=== PATIENT | male | born 1940 | race Two or more races ===

== ENCOUNTER 2017-07-04 05:56 | Day surgery (SDC) | payer OTHER ==
[~2017-07-04] VITALS: Ht 167.6 cm; Wt 86.8 kg
[2017-07-04] VITALS (11 sets, daily range): BP systolic 111–180; BP diastolic 48–115; PULSE 60–74; RESP 18–20; TEMP 97.5–98.5; O2SAT 94–95
[2017-07-04] MEDS ORDERED: SODIUM CHLOR 0.9% 1000 ML IV SCH (07:00)
[2017-07-04] MEDS ORDERED: METO25TA3 PO (07:17)
[2017-07-04] MEDS ORDERED: ASPI81CH6 CHEW (07:17)
[2017-07-04] MEDS ORDERED: NITR1SUB3 SL (07:17)
[2017-07-04] MEDS ORDERED: LISI-515 PO (07:17)
[2017-07-04] MEDS ORDERED: SIMV20TA PO (07:17)
[2017-07-04] MEDS ORDERED: LORazepam 1 MG TAB PO ONE (08:00)
[2017-07-04] MEDS ORDERED: LIDOCAINE 1%/EPINEPHrine 1:100,000 SOLN 50 ML VIAL ONE (08:03)
[2017-07-04 08:12] LABS: AUTOMATED NEUTROPHIL # 4.6 TH/MM3 (1.8-7.7); BASOPHIL # 0.1 TH/MM3 (0-0.2); BASOPHIL % 1.9 % (0.0-2.0); EOSINOPHIL # 0.1 TH/MM3 (0-0.4); EOSINOPHIL % 1.6 % (0.0-4.0); HEMATOCRIT 47.7 % (39.0-51.0); HEMOGLOBIN 16.4 GM/DL (13.0-17.0); LYMPH % 28.2 % (9.0-44.0); LYMPHOCYTE # 2.1 TH/MM3 (1.0-4.8); MEAN CELL VOLUME 90.1 FL (80.0-100.0); MEAN CORPUSCULAR HEMOGLOBIN 31.1 PG (27.0-34.0); MEAN CORPUSCULAR HGB CONC 34.5 % (32.0-36.0); MEAN PLATELET VOLUME 8.9 FL (7.0-11.0); MONO % 6.8 % (0.0-8.0); MONOCYTE # 0.5 TH/MM3 (0-0.9); NEUT % 61.5 % (16.0-70.0); PLATELET COUNT 275 TH/MM3 (150-450); RED BLOOD COUNT 5.29 MIL/MM3 (4.50-5.90); RED CELL DISTRIBUTION WIDTH 14.3 % (11.6-17.2); WHITE BLOOD COUNT 7.5 TH/MM3 (4.0-11.0)
[2017-07-04] MEDS ORDERED: fentaNYL CITRATE 250 MCG/5 ML AMP ONE (08:21)
[2017-07-04] MEDS ORDERED: MIDAZOLAM HCL 5 MG/5 ML VIAL ONE (08:21)
--- NOTE | 2017-07-04 09:04 | PD.RAD ---
Post CT Procedure Prog Note Pre Procedure Diagnosis: (1) Left renal mass Post Procedure Diagnosis: (1) Left renal mass Procedure Date: Jul 04, 2017 Supervising Radiologist: Drew Piña Anesthesia: Local, Conscious Sedation Plan of Activity Patient to Unit: ROPU Patient Condition: Good See PACS Report for procedural detail/treatment Biopsy Imaging Guidance: CT Side: Left Biopsy Procedure: Abdominal Mass, Kidney Specimen: Core Biopsy Drew Piña MD Jul 04, 2017 09:04
--- NOTE | 2017-07-04 09:22 | RADRPT ---
EXAM DATE/TIME: 07/04/2017 08:38 [place] COMPARISON: No previous studies available for comparison. INDICATIONS : Left renal mass SEDATION TIME: 20 minutes BIOPSY SITE: Left kidney MEDICATION(S): 1.) 3.5 mg midazolam (Versed) IV 2.) 225 mcg fentanyl (Sublimaze) IV DEVICE(S): 1.) 17 gauge introducer 2.) 18 gauge Temno core biopsy needle MEDICAL HISTORY : Chronic obstructive pulmonary disease. Hypertension. SURGICAL HISTORY : None. ENCOUNTER: Initial ACUITY: 1 day PAIN SCORE: 0/10 LOCATION: Left flank A total of three core specimen(s) were obtained and sent to the laboratory for pathologic evaluation. PROCEDURE: 1. CT guided left renal mass biopsy. 2. Conscious sedation with continuous EKG and oximetry monitoring. 3. EKG and oximetry remained stable throughout the procedure. Prior to the procedure informed consent was obtained. Any appropriate prior imaging studies were rev iewed. Using automated exposure control and adjustment of the mA and/or kV according to patient size, radiat ion dose was kept as low as reasonably achievable to obtain optimal diagnostic quality images. DICOM format image data is available electronically for review and comparison. The site was prepped in a sterile fashion. Full sterile technique was used, including cap, mask, sanju rile gloves and gown and a large sterile sheet. Hand hygiene and 2% chlorhexidine and/or betadine/al cohol prep was utilized per protocol for cutaneous antisepsis. The skin and subcutaneous tissues wer e infiltrated with local anesthetic solution. With CT guidance the previously identified target was localized. Biopsy was performed using the presc ribed needle as above. Adequate hemostasis was obtained with compression at the puncture site. Follow-up CT scan reveals no hemorrhage. The patient tolerated the procedure well and there were no complications. The patient was returned to the Radiology Outpatient Unit in stable condition. CONCLUSION: Uncomplicated CT guided biopsy of a left renal mass. Drew Piña MD on July 04, 2017 at 9:18 Board Certified Radiologist. This report was verified electronically.
== END 2017-07-04 15:40 | disposition home or self-care (01) ==
LOC: HRAD 05:56 → HRIP 06:00 → HRAD 15:40
PROVIDERS: ATTEND Urology
DX: C64.2 Malignant neoplasm of left kidney, except renal pelvis (principal); I10 Essential (primary) hypertension; J44.9 Chronic obstructive pulmonary disease, unspecified; Z01.818 Encounter for other preprocedural examination
CPT/HCPCS: 50200; 77012; 85025; 88305; J2250; J3010; 32405

== ENCOUNTER 2017-08-23 05:51 | Inpatient (IN) | payer OTHER, MEDICARE ==
[~2017-08-23] VITALS: Ht 167.6 cm; Wt 87.0 kg
[~2017-08-23 05:51] MED LIST: ASPI81CH6 CHEW; LISI-515 PO; METO25TA3 PO; NITR1SUB3 SL; SIMV20TA PO; UMEC1AER INH
[2017-08-23] MEDS ORDERED: METOPROLOL TARTRATE 25 MG TAB PO PRN (06:30)
[2017-08-23] MEDS ORDERED: CHLORHEXIDINE GLUCONATE 2 % 1 PACK (2 CLOTHS) TOPICAL PRN (06:30)
[2017-08-23] MEDS ORDERED: POVIDONE IODINE 5% (ANTISEPSIS KIT) 4 APPLICATIONS EACH NARE PRN (06:30)
[2017-08-23] MEDS ORDERED: SODIUM CHLORID 0.9% 500 ML IV PRN (06:30)
[2017-08-23] MEDS ORDERED: LACTATED RINGER'S 1000 ML IV PRN (06:30)
[2017-08-23 07:13] LABS: AUTOMATED NEUTROPHIL # 4.3 TH/MM3 (1.8-7.7); BASOPHIL % 0.5 % (0.0-2.0); EOSINOPHIL # 0.1 TH/MM3 (0-0.4); EOSINOPHIL % 2.2 % (0.0-4.0); HEMATOCRIT 46.2 % (39.0-51.0); HEMOGLOBIN 15.8 GM/DL (13.0-17.0); LYMPH % 24.5 % (9.0-44.0); LYMPHOCYTE # 1.7 TH/MM3 (1.0-4.8); MEAN CELL VOLUME 89.4 FL (80.0-100.0); MEAN CORPUSCULAR HEMOGLOBIN 30.6 PG (27.0-34.0); MEAN CORPUSCULAR HGB CONC 34.2 % (32.0-36.0); MEAN PLATELET VOLUME 9.1 FL (7.0-11.0); MONO % 8.6 % (0.0-8.0); MONOCYTE # 0.6 TH/MM3 (0-0.9); NEUT % 64.2 % (16.0-70.0); PLATELET COUNT 283 TH/MM3 (150-450); RED BLOOD COUNT 5.17 MIL/MM3 (4.50-5.90); RED CELL DISTRIBUTION WIDTH 14.3 % (11.6-17.2); WHITE BLOOD COUNT 6.8 TH/MM3 (4.0-11.0)
[2017-08-23] MEDS ORDERED: HYDROmorphone HCL PF 2 MG/ML VIAL ONE (07:16)
[2017-08-23] MEDS ORDERED: ACETAMINOPHEN 1000 MG/100 ML 100 ML IV ONE (07:16)
[2017-08-23] MEDS ORDERED: SUGAMMADEX SODIUM 200 MG/2 ML VIAL IV PUSH ONE (07:17)
[2017-08-23 07:38] LABS: ALBUMIN 3.8 GM/DL (3.4-5.0); BICARBONATE 23.6 MEQ/L (21.0-32.0); BLOOD UREA NITROGEN 18 MG/DL (7-18); CALCIUM 8.8 MG/DL (8.5-10.1); CHLORIDE 107 MEQ/L (98-107); CREATININE 1.08 MG/DL (0.60-1.30); GLOMERULAR FILTRATION RATE 67 ML/MIN (>89); GLUCOSE,RANDOM 107 MG/DL (74-106); SODIUM (NA) 141 MEQ/L (136-145)
[2017-08-23 07:39] LABS: ALT (GPT) 28 U/L (12-78); AST (GOT) 20 U/L (15-37)
[2017-08-23 07:41] LABS: ALKALINE PHOSPHATASE 88 U/L (45-117); TOTAL BILIRUBIN ADULT 0.8 MG/DL (0.2-1.0); TOTAL PROTEIN 7.3 GM/DL (6.4-8.2)
[2017-08-23] MEDS ORDERED: ONDANSETRON HCL 4 MG/2 ML VIAL IV ONE (12:00)
[2017-08-23] MEDS ORDERED: GLYCOPYRROLATE 1 MG/5 ML SYRINGE IV PUSH ONE (12:00)
[2017-08-23] MEDS ORDERED: PROPOFOL 200 MG/20 ML AMP IV ONE (12:00)
[2017-08-23] MEDS ORDERED: SODIUM CHLOR 0.9% 1000 ML INJ 3,000 ML IV ONE (12:00)
[2017-08-23] MEDS ORDERED: ROCURONIUM INJ 50 MG/5 ML SYRINGE IV PUSH ONE (12:00)
[2017-08-23] MEDS ORDERED: LIDOCAINE HCL 1% PF 5 ML SYRINGE OTHER ONE (12:00)
[2017-08-23] MEDS ORDERED: DEXAMETHASONE SOD PHOS 4 MG/ML VIAL IV ONE (12:00)
[2017-08-23] MEDS ORDERED: ePHEDrine/NS 25 MG/5 ML SYRINGE IV ONE (12:00)
[2017-08-23] MEDS ORDERED: SODIUM CHLORID 0.9% 500 ML INJ 500 ML IV ONE (12:00)
[2017-08-23] MEDS ORDERED: STERILE WATER FOR INJECTION 20 ML VIAL IV ONE (12:00)
[2017-08-23] MEDS ORDERED: ceFAZolin INJ 1,000 MG VIAL IV ONE ×2 (12:00→12:28)
[2017-08-23] MEDS ORDERED: VECURONIUM BROMIDE 20 MG VIAL IV ONE (12:00)
[2017-08-23] MEDS: ceFAZolin 2 GM/DEX PREMIX 50 ML IV SCH ×2 (12:25→12:31)
[2017-08-23] MEDS ORDERED: ceFAZolin INJ 1,000 MG VIAL ONE (12:26)
[2017-08-23] MEDS ORDERED: DO NOT ADM ANY ANTICOAGULANT DRUGS PRN (15:11)
--- NOTE | 2017-08-23 15:12 | PD.OP ---
Operative Report Date of Surgery: August 23, 2017 Preoperative Diagnosis: (1) Left renal mass (2) Renal cell carcinoma of left kidney Postoperative Diagnosis: (1) Bladder mass (2) Renal cell carcinoma of left kidney Procedure: Cystoscopy, transurethral resection of 2 bladder tumors measuring 1 cm and 2 cm respectively (left lateral wall )and robot-assisted laparoscopic left radical nephrectomy Anesthesia: General Surgeon: Gustavo Razo Art Educator(s): Stevan Barry Operation and Findings: Indication for procedures: Case of a pleasant 77-year-old gentleman who was recently discovered to have an approximately 5 cm left lower pole renal carcinoma as well as a filling defect involving the left bladder wall who presents today for cystoscopy and a robot-assisted laparoscopic left partial versus radical nephrectomy. Operative procedure in detail: Patient was brought to the operating room suite and placed supine. He was then placed under general anesthesia. He was then repositioned in the dorsolithotomy position and prepped and draped in normal sterile fashion. After appropriate timeout was undertaken I proceeded with cystoscopic evaluation utilizing the rigid cystoscope with the 20 [place] sheath and the 30 lens. The urethra was patent without stricture formation. The prostate was nonobstructing. Further passive cystoscope within the urinary bladder revealed both right and left ureteral orifices to be in correct anatomic position draining clear yellow urine. There were 2 frondular superficial bladder tumors involving the left lateral wall measuring 1 cm and 2 cm respectively. The cystoscope was exchanged for the resectoscope with the 24 [place] Cutting Loop and the patient underwent transurethral resection of these 2 bladder tumors. Again the tumors were very superficial in nature. Subsequent to this a 18 [place] 10 cc Kahn catheter was placed and the patient was repositioned in the right lateral recumbent position on the OR table in preparation for the robotic portion of the procedures. The patient was held in place with a beanbag and all pressure points were adequately padded. The lower aspect of the table was dropped down prior to inflating the beanbag to adequately separate the bony pelvis from the thorax. The patient was against was prepped and draped in normal sterile fashion. I then proceeded with creating a pneumoperitoneum utilizing the Veress needle in standard fashion. The pneumoperitoneum was inflated to 15 mmHg and subsequent to this the camera port was placed with the visual obturator. The remaining 3 robotic arm ports and the first breaker feeder port were placed under direct vision. At this point in time my associate Dr. Barry remained at the table to dock the robot and I repositioned myself over at the [employer] console.. I then proceeded to mobilize the left colon medially with both sharp and blunt dissection to expose the retroperitoneum. The inferior aspect of the kidney was mobilized and the ureter was identified and tracked upwards to the renal hilum. The patient was noted to have multiple arteries and veins innervating the kidney. I carefully excised most of the perirenal fat along the inferior aspect of the kidney and it became apparent that this patient was not a good candidate for a partial nephrectomy due to the size and location of the mass. I then proceeded to perform a radical nephrectomy. The renal arteries and veins were divided and ligated with the endovascular stapling device. The kidney was further mobilized and the ureter transected between 2 Humalog clips. Once fully mobilized the kidney was dropped into a large Endo Catch specimen bag. The pneumoperitoneum was dropped down to 5 mmHg to check for active bleeding and none was noted. Total blood loss was estimated to be 125 cc. The robot was undocked and the ports removed. I re-scrubbed and position myself back over at the bedside for wound closure. The camera port and first breaker feeder port were in the midline just superior to inferior to the umbilicus and these 2 sites were connected with a #10 blade. I extended the incision down and transected the underlying fascia. The patient was noted to have an umbilical hernia. The specimen was removed within the specimen bag and sent off to pathology. This lower midline incision was then closed with a running #1 PDS suture. The free skin edges were reapproximated with skin stapling device after the wound was irrigated. The remaining robotic arm ports were then addressed. 1 of the port sites was utilized for the RICA drain and the other 2 port sites were closed with the skin stapling device. Sterile dressings were placed over all wounds. The patient tolerated the procedures without complications and was transferred to the PACU in satisfactory condition. Gustavo Razo MD August 23, 2017 15:12
[2017-08-23] MEDS ORDERED: Post-op Orders (for Pharmacy) XX ONE (15:15)
[2017-08-23] MEDS ORDERED: NALOXONE HCL 0.4 MG/ML AMP IV PUSH PRN (15:15)
[2017-08-23] MEDS ORDERED: ONDANSETRON HCL 4 MG/2 ML VIAL IV PUSH PRN (15:15)
[2017-08-23] MEDS: PCA - TOTAL MG DILAUDID DELIVERED PER SHIFT OTHER SCH ×2 (15:15→20:47)
[2017-08-23] MEDS ORDERED: SODIUM CHLORIDE 0.9% FLUSH 10 ML FLUSH IV FLUSH PRN (15:15)
[2017-08-23] MEDS: HYDROmorphone HCL PCA 6 MG/30 ML IV SCH (15:55)
[2017-08-23] MEDS: D5-1/2 NS + KCL 20 MEQ INJ 1,000 ML IV SCH ×2 (16:29→23:30)
--- NOTE | 2017-08-23 18:02 | EKG ---
Date Performed: 08/23/2017 Time Performed: 06:54:17 PTAGE: 77 years EKG: Sinus rhythm NORMAL ECG NO PREVIOUS TRACING DOCTOR: Elena White Interpretating Date/Time 08/23/2017 18:00:26
[2017-08-23 20:00] VITALS: BP 133/64; PULSE 82; RESP 19; TEMP 98.7; O2SAT 91
[2017-08-23] MEDS: SODIUM CHLORIDE 0.9% FLUSH 10 ML FLUSH IV FLUSH SCH (20:47)
[2017-08-24] VITALS (8 sets, daily range): BP systolic 117–138; BP diastolic 58–75; PULSE 72–101; RESP 16–20; TEMP 97.4–98.7; O2SAT 91–99
[2017-08-24] MEDS: PCA - TOTAL MG DILAUDID DELIVERED PER SHIFT OTHER SCH (05:04)
[2017-08-24] MEDS: HYDROmorphone HCL PCA 6 MG/30 ML IV SCH (05:04)
[2017-08-24] MEDS: SODIUM CHLORIDE 0.9% FLUSH 10 ML FLUSH IV FLUSH SCH ×2 (07:13→20:47)
[2017-08-24] MEDS: D5-1/2 NS + KCL 20 MEQ INJ 1,000 ML IV SCH ×2 (07:30→20:47)
[2017-08-24 10:23] LABS: HEMATOCRIT 42.1 % (39.0-51.0); HEMOGLOBIN 13.8 GM/DL (13.0-17.0); MEAN CELL VOLUME 93.2 FL (80.0-100.0); MEAN CORPUSCULAR HEMOGLOBIN 30.5 PG (27.0-34.0); MEAN CORPUSCULAR HGB CONC 32.7 % (32.0-36.0); MEAN PLATELET VOLUME 9.5 FL (7.0-11.0); PLATELET COUNT 250 TH/MM3 (150-450); RED BLOOD COUNT 4.52 MIL/MM3 (4.50-5.90); RED CELL DISTRIBUTION WIDTH 14.9 % (11.6-17.2); WHITE BLOOD COUNT 15.6 TH/MM3 (4.0-11.0)
[2017-08-24 11:06] LABS: BICARBONATE 25.1 MEQ/L (21.0-32.0); CALCIUM 7.8 MG/DL (8.5-10.1); CREATININE 2.3 MG/DL (0.60-1.30)
--- NOTE | 2017-08-24 11:56 | HHI.PR ---
Subjective Patient symptoms today Postoperative day #1 Complains of only minor incisional pain Overall feels fine Objective Vital Signs Vital Signs Date Time Temp Pulse Resp B/P (MAP) Pulse Ox O2 Delivery O2 Flow Rate FiO2 08/24/17 08:00 97.6 76 16 129/68 (88) 94 08/24/17 05:04 20 08/24/17 05:04 20 08/24/17 04:00 97.9 73 19 119/64 (82) 99 08/24/17 00:00 98.7 72 19 124/58 (80) 92 08/23/17 20:47 20 08/23/17 20:00 98.7 82 19 133/64 (87) 91 08/23/17 17:35 98.3 80 16 136/65 (88) 98 Nasal Cannula 2 08/23/17 17:00 78 14 144/68 (93) 98 Nasal Cannula 2 08/23/17 16:30 85 15 147/75 (99) 98 Nasal Cannula 2 08/23/17 16:15 92 16 154/74 (100) 97 Nasal Cannula 2 08/23/17 16:00 90 15 149/68 (95) 97 Nasal Cannula 2 08/23/17 15:55 15 08/23/17 15:45 94 18 156/71 (99) 95 Nasal Cannula 2 08/23/17 15:30 80 16 148/71 (96) 97 Nasal Cannula 2 08/23/17 15:15 88 18 143/67 (92) 97 Nasal Cannula 2 08/23/17 15:10 97.7 95 20 154/72 (99) 98 Nasal Cannula 4 Intake & Output 08/24/17 08/24/17 07:00 19:00 Intake Total 0 ml Output Total 1500 ml Balance -1500 ml Intake Oral 0 ml Output Urine Total 1500 ml # Bowel Movements 0 Result Diagram: 08/24/17 0849 08/24/17 0849 Objective Remarks Abdomen soft, nondistended, nontender Wound dressings dry and intact Minimal output from RICA drain Extremities well-perfused, nontender Medications and IVs Current Medications Medications (Trade) Dose Ordered Sig/Salima Route Start Time Stop Time Status Last Admin Cefazolin Sodium/ Dextrose 50 ml @ 100 mls/hr CONTROL ENGINEER IV 08/23/17 06:30 08/26/17 06:29 08/23/17 12:31 (Lopressor) 25 mg CONTROL ENGINEER PRN PO 08/23/17 06:30 08/26/17 06:29 08/23/17 06:39 (Betadine 5% Antisepsis Kit) 1 applic CONTROL ENGINEER PRN EACH NARE 08/23/17 06:30 08/26/17 06:29 08/23/17 06:39 (Chlorhexidine 2% Cloth) 3 pack CONTROL ENGINEER PRN TOPICAL 08/23/17 06:30 08/26/17 06:29 08/23/17 06:39 (NS Flush) 2 ml UNSCH PRN IV FLUSH 08/23/17 15:15 (NS Flush) 2 ml BID IV FLUSH 08/23/17 21:00 (Zofran Inj) 4 mg Q6H PRN IV PUSH 08/23/17 15:15 Cefazolin Sodium 1000 mg/Sodium Chloride 100 ml @ 200 mls/hr Q8H IV 08/23/17 20:00 08/24/17 12:29 08/24/17 05:04 (Heparin Inj) 5,000 units Q8H SQ 08/24/17 14:00 (Narcan Inj) 0.4 mg UNSCH PRN IV PUSH 08/23/17 15:15 (Dilaudid HYSTER MACHINE OPERATOR Inj) 6 mg UNSCH IV 08/23/17 15:15 08/24/17 05:04 HYSTER MACHINE OPERATOR Dosage Infused (Pha) 1 Q8HR OTHER 08/23/17 15:15 08/24/17 05:04 Potassium Chloride/Dextrose/ Sod Cl 1,000 ml @ 42 mls/hr [id number] IV 08/23/17 15:30 08/23/17 23:30 ([facility] Nursing Information) ALL NURSING DEPARTME... UNSCH PRN .XX 08/23/17 15:11 08/24/17 15:10 (Nitrostat Sl) 0.4 mg ONCE PRN SL 08/24/17 12:00 UNV Non-Formulary Medication 20 mg DAILY PO 08/24/17 12:00 UNV Assessment and Plan Assessment and Plan Urologic impression: Status post robot-assisted laparoscopic left radical nephrectomy along with transurethral resection of 2 bladder tumors with excellent postoperative course. Plan: 1. Advance diet 2. Out of bed 3. DC RICA drain 4. DC Kahn in a.m. 5. Check path when available Scaglia,Chen P. MD August 24, 2017 11:56
[2017-08-24] MEDS ORDERED: NITROGLYCERIN 0.4 MG SL 25 TABS/BTL SL PRN (12:00)
[2017-08-24] MEDS ORDERED: oxyCODONE/ACETAMINOPHEN 5 MG/325 MG TAB PO PRN (12:00)
[2017-08-24] MEDS: PRAVASTATIN SOD 40 MG TAB PO SCH (14:07)
[2017-08-24] MEDS: HEPARIN SODIUM - SQ 10,000 UNITS/ML VIAL SQ SCH ×2 (14:08→20:43)
[2017-08-24] MEDS: oxyCODONE/ACETAMINOPHEN 5 MG/325 MG TAB PO PRN (15:55)
[2017-08-25] VITALS: BP 130/69; PULSE 92; RESP 17; TEMP 97.5; O2SAT 93
[2017-08-25] MEDS: HEPARIN SODIUM - SQ 10,000 UNITS/ML VIAL SQ SCH (06:00)
[2017-08-25 08:00] VITALS: BP 180/90; PULSE 76; RESP 19; TEMP 97.4; O2SAT 95
[2017-08-25] MEDS: SODIUM CHLORIDE 0.9% FLUSH 10 ML FLUSH IV FLUSH SCH (09:00)
[2017-08-25] MEDS: PRAVASTATIN SOD 40 MG TAB PO SCH (09:12)
[2017-08-25] MEDS ORDERED: LISINOPRIL 20 MG TAB PO SCH (09:30)
[2017-08-25] MEDS ORDERED: METOPROLOL TARTRATE 25 MG TAB PO SCH (09:30)
[2017-08-25] MEDS: oxyCODONE/ACETAMINOPHEN 5 MG/325 MG TAB PO PRN (10:15)
--- NOTE | 2017-08-25 11:47 | HHI.DS ---
Discharge Summary Admission Date August 23, 2017 at 15:24 Discharge Date: August 25, 2017 Admitting Diagnosis Left renal cell carcinoma (1) Bladder mass Diagnosis: Secondary ICD Codes: N32.89 - Other specified disorders of bladder (2) Renal cell carcinoma of left kidney Diagnosis: Principal ICD Codes: C64.2 - Malignant neoplasm of left kidney, except renal pelvis Procedures Robot-assisted laparoscopic left radical nephrectomy, cystoscopy and transurethral resection of 2 bladder tumors Brief History 77-year-old gentleman with a 5 cm left renal mass biopsy proven to be renal cell carcinoma who was admitted for definitive management. Patient also was noted to have an irregularity involving the urinary bladder on preoperative imaging and was scheduled to have cystoscopic evaluation to be performed during the same operative setting. Please refer to admission history and physical for additional history and pertinent physical findings. CBC/BMP: 08/24/17 0849 08/24/17 0849 Significant Findings Laboratory Tests Test 08/23/17 06:45 08/24/17 08:49 Monocytes (%) (Auto) 8.6 % (0.0-8.0) Random Glucose 107 MG/DL (74-106) 109 MG/DL (74-106) Estimat Glomerular Filtration Rate 67 ML/MIN (>89) 28 ML/MIN (>89) White Blood Count 15.6 TH/MM3 (4.0-11.0) Blood Urea Nitrogen 29 MG/DL (7-18) Creatinine 2.30 MG/DL (0.60-1.30) Calcium Level 7.8 MG/DL (8.5-10.1) PE at Discharge Abdomen soft, nondistended, nontender Wound sites clean and dry Extremities well-perfused, nontender Hospital Course Patient was admitted on August 23 and underwent a formation procedures. The procedures went well without complications. Postoperatively the patient had an unremarkable course. By postop day #2 the patient was tolerating regular diet, ambulating and had stable vital signs. Decision was thus made to discharge the patient home. Pathology was still pending at the time of discharge. Pt Condition on Discharge: Good Discharge Disposition: Discharge Home Discharge Instructions DIET: Follow Instructions for: As Tolerated, No Restrictions Activities you can perform: See Additionl Instruction Activities to avoid: Strenuous Activity Additional Activity Instructio: No strenuous activity for 6 weeks from date of surgery August shower but no bathing Gustavo Razo MD August 25, 2017 11:47
[2017-08-25] MEDS ORDERED: COLA100C5 PO (11:48)
[2017-08-25] MEDS ORDERED: PERC5TAB12 PO (11:48)
[2017-08-25 12:00] VITALS: BP 171/80; PULSE 84; RESP 20; TEMP 98.2; O2SAT 96
== END 2017-08-25 13:15 | disposition home or self-care (01) | DRG 658 ==
LOC: HSDC 05:51 → HSDI 15:24 → N07B 17:47
PROVIDERS: ADMIT Urology; ATTEND Urology
PROC: 0TJB8ZZ Inspection of Bladder, Via Natural or Artificial Opening Endoscopic (ICD-10-PCS; 2017-08-23)
PROC: 8E0W4CZ Robotic Assisted Procedure of Trunk Region, Percutaneous Endoscopic Approach (ICD-10-PCS; 2017-08-23)
PROC: 0T9B70Z Drainage of Bladder with Drainage Device, Via Natural or Artificial Opening (ICD-10-PCS; 2017-08-23)
PROC: 0TT14ZZ Resection of Left Kidney, Percutaneous Endoscopic Approach (ICD-10-PCS; principal; 2017-08-23 08:14)
DX: C64.2 Malignant neoplasm of left kidney, except renal pelvis (principal); D49.4 Neoplasm of unspecified behavior of bladder; K42.9 Umbilical hernia without obstruction or gangrene
CPT/HCPCS: 80048; 80053; 85025; 85027; 85610; 85730; 86850; 86900; 86901; 86920; 88307; 88341; 88342; 93005; 94150; J0131; J0690; J1100; J1170; J1644; J2405; J3010; J3480; J7030; J7040; J7120